=== PATIENT | male | born 1970 | race African-American/Black ===

== ENCOUNTER 2019-01-19 07:53 | Day surgery (SDC) | payer BC ==
[2019-01-14 13:18] VITALS: BMI 30.2
[2019-01-19] MEDS ORDERED: PROPOFOL 20 ML ONE ×2 (08:06)
[2019-01-19 09:56] VITALS: TEMP 98.4
[2019-01-19 10:27] VITALS: BP 129/89; PULSE 69
--- NOTE | 2019-01-21 17:02 | PATH ---
Surgical Pathology Report Patient Name: URSULA SANDS [facility]. Rec. #: [id number] /Age/Gender: 1970 (Age: 48) / M Account: [id number] Location: [facility] Taken: 01/19/2019 Received: 01/19/2019 Reported: 01/21/2019 Physicians: Hakan Rausch M.D. Specimen(s) Received POLYP TRANSVERSE COLON Clinical History Screening Postoperative diagnosis: Polyp Final Diagnosis TRANSVERSE COLON POLYP, POLYPECTOMY: TUBULAR ADENOMA. Electronically Signed Gerry Pacheco M.D. Gross Description Received in formalin, labeled "biopsy polyp transverse colon" is a kuo, irregular portion of soft tissue measuring 0.3 cm. in greatest dimension. The specimen is submitted in toto in one cassette. 01/20/201901/20/2019
== END 2019-01-19 10:45 | disposition home or self-care (01) ==
LOC: FASU-ENDO 07:53
PROVIDERS: ATTEND Internal Medicine Gastroenterology
PROC: 0DBL8ZX Excision of Transverse Colon, Via Natural or Artificial Opening Endoscopic, Diagnostic (ICD-10-PCS; principal; 2019-01-19 09:29)
DX: Z12.11 Encounter for screening for malignant neoplasm of colon (principal); D12.3 Benign neoplasm of transverse colon
CPT/HCPCS: 88305-TC